=== PATIENT | female | born 1965 | race Caucasian/White ===

== ENCOUNTER 2024-08-06 12:21 | Emergency (ER) | payer MEDICARE, OTHER ==
[~2024-08-06] VITALS: Ht 162.6 cm; Wt 75.5 kg
[2024-08-06] MEDS ORDERED: KETOROLAC TROMETHAMINE 15 MG/ML VIAL IV ONE (12:45)
[2024-08-06 12:51] LABS: BASOPHILS 0.9 % (0-2); EOSINOPHILS 3.5 % (0-6); HEMATOCRIT 35.1 % (35.0-50.0); HEMOGLOBIN 11.9 g/dL (12.0-18.0); LYMPHOCYTES 38.1 % (24-44); MCH 30.2 (27-36); MCHC 33.8 g/dl (30-36); MCV 89.4 fl (81-99); MONOCYTES 7.7 % (0-12); NEUTROPHILS 49.8 % (39-80); PLATELET COUNT 264 K/uL (140-440); RBC 3.92 M/ul (4.3-5.7); RDW 13.5 (10.5-15.0)
[2024-08-06] MEDS ORDERED: LIPITOR80 MG GT (12:52)
[2024-08-06] MEDS ORDERED: DULCOLAX10 MG PR (12:52)
[2024-08-06] MEDS ORDERED: ACETAMINOPHEN500 MG PO (12:52)
[2024-08-06] MEDS ORDERED: BION TEARS OP (12:53)
[2024-08-06] MEDS ORDERED: CERTAVITE SR-A1 EACH PO (12:53)
[2024-08-06] MEDS ORDERED: DULCOLAX5 MG (12:53)
[2024-08-06] MEDS ORDERED: ESCITALOPRAM OX10 MG PO (12:54)
[2024-08-06] MEDS ORDERED: FYCOMPA10 MG PO (12:55)
[2024-08-06] MEDS ORDERED: IBUPROFEN200 M1 PO (12:55)
[2024-08-06] MEDS ORDERED: FOLIC ACID1 MG PO (12:55)
[2024-08-06] MEDS ORDERED: FENOFIBRATE200 MG PO (12:55)
[2024-08-06] MEDS ORDERED: [UNRECOGNIZED DRUG - OTHER] PO (12:56)
[2024-08-06] MEDS ORDERED: [UNRECOGNIZED DRUG - OTHER] PO (12:56)
[2024-08-06] MEDS ORDERED: LEVOTHYROXINE75 MC1 (12:57)
[2024-08-06] MEDS ORDERED: LATANOPROST2.5 ML OPTH (12:57)
[2024-08-06] MEDS ORDERED: LOMOTIL TABLET1 EACH (12:57)
[2024-08-06] MEDS ORDERED: CLARITIN10 M2 PO (12:57)
[2024-08-06] MEDS ORDERED: LORAZEPAM1 MG PO (12:58)
[2024-08-06] MEDS ORDERED: COZAAR25 MG PO (12:58)
[2024-08-06] MEDS ORDERED: MAGNESIUM400 M1 PO (12:58)
[2024-08-06] MEDS ORDERED: PANTOPRAZOLE SO40 M2 PO (12:59)
[2024-08-06] MEDS ORDERED: NYSTATIN15 GM (12:59)
[2024-08-06] MEDS ORDERED: MILK OF MA400 MG/5 M PO (12:59)
[2024-08-06] MEDS ORDERED: TOPIRAMATE PO (13:00)
[2024-08-06] MEDS ORDERED: VALTOCO10 MG/0.1 NS (13:00)
[2024-08-06] MEDS ORDERED: QUETIAPINE FUMA25 MG PO (13:00)
[2024-08-06] MEDS ORDERED: VITAMIN D3100 GM (13:01)
[2024-08-06 13:09] LABS: ALBUMIN 3.5 g/dL (3.4-5.0); ALBUMIN/GLOBULIN RATIO 0.95 (1.1-2.4); ANION GAP 12.6 (7-21); BILIRUBIN, TOTAL 0.2 mg/dL (0.2-1.0); BUN/CREATININE RATIO 20.86 (6.0-28.6); CALCIUM 9.3 mg/dL (8.5-10.1); CREATININE, SERUM 1.15 mg/dL (0.55-1.02); POTASSIUM 3.6 mmol/L (3.5-5.1); PROTEIN, TOTAL 7.2 g/dL (6.4-8.2)
[2024-08-06] MEDS ORDERED: HYDROmorphone HCL 1 MG/ML SYR IV PRN (13:30)
[2024-08-06 15:25] VITALS: BP 159/81
--- NOTE | 2024-08-07 08:14 | EKG ---
[facility] [address] [facility] [place], [place] [address] Signed Normal sinus rhythm Nonspecific ST and T wave abnormality Abnormal ECG No previous ECGs available Confirmed by Jamar Diane DO ([id number]) on 08/07/2024 8:14:30 AM Electronically Signed By: JAMAR DIANE DO 08/07/24 0814 PATIENT NAME: RERE JOVEL Electrocardiogram DATE OF : 65 PHYSICIAN: JAMAR DIANE DO REPORT #: [id number] REPORT IS CONFIDENTIAL AND NOT TO BE RELEASED WITHOUT AUTHORIZATION
== END 2024-08-06 15:30 | disposition home or self-care (01) ==
LOC: ED 12:21
PROVIDERS: Emergency Medicine
DX: R07.89 Other chest pain (principal); G47.30 Sleep apnea, unspecified; Z88.0 Allergy status to penicillin; Z88.1 Allergy status to other antibiotic agents; Z91.018 Allergy to other foods; Z79.2 Long term (current) use of antibiotics; Z79.899 Other long term (current) drug therapy; Z79.890 Hormone replacement therapy
CPT/HCPCS: 36415; 71045; 71260; 80053; 84484; 85025; 85379; 93005; 93010; 99285-25; J1171; J1885

== ENCOUNTER 2025-02-01 23:06 | Inpatient (IN) | payer MEDICARE, OTHER ==
[~2025-02-01] VITALS: Ht 162.6 cm; Wt 75.7 kg
[~2025-02-01 23:06] MED LIST: BION TEARS OU; CERTAVITE SR-A1 EACH PO; CLARITIN10 MG PO; COZAAR25 MG PO; DULCOLAX10 MG PR; DULCOLAX5 MG PO; ESCITALOPRAM OX10 MG PO; FENOFIBRATE200 MG PO; FOLIC ACID1 MG PO; FYCOMPA10 MG PO; IBUPROFEN200 M1 PO; LATANOPROST2.5 ML OU; LIPITOR80 MG PO; LOMOTIL TABLET1 EACH PO; LORAZEPAM1 MG PO; MAGNESIUM400 M1 PO; MILK OF MA400 MG/5 M PO; NYSTATIN15 GM; PAIN RELIEF650 MG PO; PROTONIX40 MG PO; QUETIAPINE FUMA25 MG PO; SYNTHROID75 MCG PO; TOPAMAX200 MG PO; VALTOCO10 MG/0.1 NS; VITAMIN D350 MCG PO; [UNRECOGNIZED DRUG - OTHER] PO; [UNRECOGNIZED DRUG - OTHER] PO
[2025-02-01 23:42] LABS: BASOPHILS 0.7 % (0.1-1.2); EOSINOPHILS 1.4 % (0.7-5.8); LYMPHOCYTES 27.7 % (19.3-51.7); MCH 30.2 PG (25.6-32.2); MCHC 32.9 g/dL (32.2-35.5); MCV 91.9 fL (79.4-94.8); MONOCYTES 7.3 % (4.7-12.5); NEUTROPHILS 62.5 % (34.0-71.1); RBC 4.20 M/uL (3.93-5.22)
[2025-02-02] VITALS (8 sets, daily range): BP systolic 128–146; BP diastolic 60–85
[2025-02-02 00:13] LABS: ALT (SGPT) 34.0 U/L (14-59); AST (SGOT) 28.0 U/L (15-37); GLOMERULAR FILTRATION RATE,EST 55.0 mL/min (>60); PROTEIN, TOTAL 7.6 g/dL (6.4-8.2); UREA NITROGEN 24.0 mg/dL (7-18)
[2025-02-02] MEDS ORDERED: LACTATED RINGER'S 1,000 ML IV SCH ×2 (00:30→04:00)
[2025-02-02] MEDS ORDERED: HYDROmorphone HCL 1 MG/ML SYR IV PRN ×2 (00:30→04:00)
[2025-02-02] MEDS ORDERED: OXYCODONE/ACETAMINOPHEN 1 TAB HOME.PACK PO ONE ×2 (00:45)
[2025-02-02] MEDS ORDERED: OXYCODONE/APAP 5/325 TAB PO ONE (00:45)
[2025-02-02] MEDS ORDERED: PERCOCET 5-3251 EACH PO (00:52)
[2025-02-02 01:18] LABS: BLOOD/HGB, URINE NEGATIVE (Negative); KETONE, URINE NEGATIVE (Negative); LEUK ESTERASE, URINE NEGATIVE (negative); NITRITE, URINE NEGATIVE (negative)
[2025-02-02] MEDS ORDERED: ACETAMINOPHEN 325 MG TAB PO PRN ×2 (04:00→12:15)
[2025-02-02] MEDS ORDERED: LACOSAMIDE100 MG PO (04:53)
[2025-02-02] MEDS ORDERED: FYCOMPA10 MG PO (04:57)
--- NOTE | 2025-02-02 06:55 | NUR ---
THIS RN TO ER TO GET PT FOR TRSF TO MED SURG. PT ALONE IN ROOM - SLEEPING WITH CALL LIGHT IN REACH - OPENS EYES TO STIMULI BUT DOES NOT TALK OR ANSWER ANY QUESTIONS, EYES OPEN WIDE. PT DOES NOT FOLLOW ANY COMMANDS EXCEPT WHEN I ASK HER TO LIFT UP HER HANDS. DOES NOT RESPOND WHEN I ASK ABOUT PAIN OR WHAT HAPPENED, OR HER NAME. THIS RN AND ER NURSE ROSSI HERRMANN PT FOR SKIN CHECK WNL. ATTENDS CLEAN AND DRY. PT ONLY HAS [employer] ON AND WITH HER - AND HER ISP BOOK FROM [employer]. PT HAS [employer] POLST FORM FOR FULL CODE IN BINDER AND CELL OPERATION SUPERVISOR REPORTS PT IS HER OWN GAURDIAN AND STAFF REPORTED FROM [employer] THAT SHE SIGNS FOR HERSELF. PT TRSFERED TO ROOM 115 AND WAS HOVER MAT SLIDE TO BED - DID NOT RESPOND TO QUESTIONS, LEFT LEG IN SPLINT AND ELEVATED ON PILLOW, BED ALARM ON, LOW POSITION, PT VITALS TAKEN AND BED WEIGHT AND THEN FALLS ASLEEP. DOOR AND CURTAIN OPEN 0730 REPORT GIVEN TO MEKHI.
--- NOTE | 2025-02-02 07:00 | NUR ---
ON WAY TO PT ROOM PASSED DC ROVERTO ALVA, LET THEM KNOW PT FROM [facility] WITH NO STAFF AT PRESENT AND THIS RN TO ADMIT TO ROOM 115, PT HAS POLST FROM HOME - FULL CODE, [place] FORM HAS A NOTE ON IT ABOUT LEGALITY - RN CONCERNED PT IS ALONE AND NOT ALERT AND ORIENTED TO SELF AT THIS TIME, PT NPO FOR POTENTIAL ASSESSMENT FOR SURGERY FOR LEFT TIB/FIB FX. PT SLEEPY. THEY HAVE NOTED SITUATION.
--- NOTE | 2025-02-02 07:36 | NUR ---
THIS RN RECEIVED REPORT FROM JAME RN Rosi TORRES. PATIENT RESTING IN BED, OPENES EYES WHEN TALKING TO HER, SHAKES HER HEAD TO SOME QUESTIONS BUT NOT VERBALLY RESPONDING. CALL LIGHT PROVIDED TO PATIENT, BED ALARM IN PLACE. (L) LEG CAST WITH CARINA BANDAGE IN PLACE, TOES WARM. PT DOES NOT RESPOND WHEN ASKING IF IN PAIN. CURRENTLY ALL PT CARE NEEDS MET, TEMP IN ROOM TURNED UP SLIGHTLY IT IS CHILLY. WILL ALLOW PATIENT TO REST AT THIS TIME. GREEN BINDER FROM [facility] PRESENT IN ROOM ON BEDSIDE TABLE.
--- NOTE | 2025-02-02 08:22 | NUR ---
PT RESTING IN BED, DOES TO RESPOND VERBALLY, ASKED IF PATIENT IS IN PAIN THIS MORNING AND SHAKES HER HEAD YES, WILL NOT GIVE ME ANY NUMERICAL NUMBER, FACIAL GRIMACES, DOES NOT APPEAR ANXIOUS OR AGITATED. PRN DILAUDID 0.4MG GIVEN - SEE JUN. IV FLUIDS STARTED - SEE JUN. ASSESSMENT BENIGN, EXCEPT THE CAST TO (L) LEG, TOES WARM, PATIENT JERKED WHEN TOUCHED TOES, FACIAL GIMACHES AND LIFTED HEAD BACK, APPEARS IN SIGNIFICANT PAIN. ATTENDS IN PLACE. BED ALARM IN PLACE, CALL LIGHT WITHIN PATIENT REACH.
[2025-02-02 08:26] LABS: GLOMERULAR FILTRATION RATE,EST 61.0 mL/min (>60); UREA NITROGEN 25.0 mg/dL (7-18)
--- NOTE | 2025-02-02 09:29 | NUR ---
THIS RN AND SHIRT HEMMER ELBA IN TO APPLY PUREWICK AND REPOSITION PATIENT. PERICARE COMPLETED PRIOR TO PUREWICK IN PLACE. PT SHAKES HER HEAD YES WHEN ASKED IF HER PAIN IS BETTER. PT ABLE TO BEND RIGHT LEG TO HELP WITH PERICARE. ABLE TO WIGGLES LEFT TOES WHEN ASKED TO. BED ALARM IN PLACE. ALL PT CARE NEEDS MET AT THIS TIME.
--- NOTE | 2025-02-02 09:49 | NUR ---
PT RESTING IN BED WITH EYES CLOSED, DOES NOT OPEN WHEN THIS RN ENTERS ROOM. PT ALLOWED TO REST, CALL LIGHT ON THE BED WITHIN REACH. BED ALARM IN PLACE.
--- NOTE | 2025-02-02 09:55 | NUR ---
CT ARRIVED TO FLOOR TO GET PATIENT, PT ABLE TO TURN AND ASSIST THIS RN IN BED, HOVER MAT APPLIED TO BED TO ASSIST THEM WITH MOVING PATIENT OVER IN CT. PT UNDERSTANDS AND STATES TO THIS RN, "I KNOW", WHEN EXPLAINGIN ABOUT THE CT IMAGING PROCEDURE.
--- NOTE | 2025-02-02 10:21 | NUR ---
PT BACK ON FLOOR FROM CT. IV FLUIDS RESTARTED. BED ALARM IN PLACE, PT DENIES ANY THING AT THIS TIME, CALL LIGHT WITHIN REACH.
--- NOTE | 2025-02-02 11:58 | NUR ---
LUIS MIGUEL LOCK (NICOLAS @ [facility]) CALLED FOR UPDATE. INFORMED PT TO GO TO SURGERY SUNDAY. SHE IS OCNCERNED ABOUT HER NEEDS POST-OP AND THEIR ABILITY TO TAKE CARE OF HER TO THE LEVEL SHE WILL NEED. INFORMED I WILL HAVE CASE MGMT UPDATE HER AND DISCUSS SAFE DISCHARGE PLAN WITH HER. INFORMATION GIVEN TO YOVANI AND SHE WILL TOUCH BACK WITH LUIS MIGUEL.
[2025-02-02] MEDS ORDERED: FENOFIBRATE,MICRONIZED 145 MG TAB PO SCH (12:20)
[2025-02-02] MEDS ORDERED: LORATADINE 10 MG TAB PO SCH (12:25)
[2025-02-02] MEDS ORDERED: LORazepam 1 MG TAB PO PRN (12:45)
[2025-02-02] MEDS ORDERED: ESCITALOPRAM OXALATE 10 MG TAB PO SCH ×2 (12:49→21:00)
[2025-02-02] MEDS ORDERED: LACOSAMIDE200 MG PO (12:56)
[2025-02-02] MEDS ORDERED: LORAZEPAM1 MG PO (13:02)
[2025-02-02] MEDS ORDERED: TOPAMAX50 MG PO (13:06)
--- NOTE | 2025-02-02 13:15 | NUR ---
PT PUT QUENCHER OPERATOR LIGHT, THIS RN TO ROOM PT GRIMACING AND APPEARS IN PAIN, UNABLE TO GIVE ME A NUMERICAL RATING FOR PAIN. VERY TENSE. PRN MEDS GIVEN - SEE MAR. PT ABLE TO TOLERATE PILLS WITHOUT ANY ISSUES, GIVEN 1 PILL AT A TIME. DIETARY CALLED TO GET A LUNCH TRAY DELIVERED MD JUST INPUT MEDS. CALL LIGHT WTIHIN REACH, BED ALARM IN PLACE. PUREWICK REMAINS IN PLACE.
[2025-02-02] MEDS ORDERED: ADVIL200 MG PO (13:25)
--- NOTE | 2025-02-02 13:49 | NUR ---
UR CLINICAL REVIEW: 2 MN FOR VERSALUS-PER OUTSIDE PRODUCTION INSPECTOR MEETS INPT FOR ANKLE FX WITH NEED FOR IV PAIN CONTOL AND SURGICAL PROCEDURE MEDICARE INPT 02/02/25 @ 1233 ORDER MATCHES REG NO AUTH REQUIRED PER MEDICARE GUIDELINES DISCHARGE PENDING FURTHER NEEDS FOLLOWING SURGICAL PROCEDURE
--- NOTE | 2025-02-02 13:49 | NUR ---
SPOKE WITH CAREGIVER AT [facility]. PATIENT PERSONAL HEALTH INFORMATION REVIEWED. PATIENT AMBULATORY AT FACILITY. HAS A WHEELCHAIR FOR LONG OUTINGS. DOES NOT USE OXYGEN OR CPAP. PATIENT LIVED ALONE PRIOR TO MOVING INTO [facility] 2 YEARS AGO. SPOKE WITH CAREGIVER LUIS MIGUEL. LET HER KNOW THAT SHE WILL HAVE SURGERY ON 02/04. SHE SAID SHE WOULD COME TO THE HOSPITAL TO BE WITH HER WHILE FILLING OUT HER CONSENT BUT SHE IS HER OWN GUARDIAN AND CAN SIGN FOR HERSELF. SHE HAD A PCP IN [place] MARIE CAUSEY BUT DUE TO [place] NOT TAKING [place] ANYMORE SHE IS GETTING ESTABLISHED ON 01/10 WITH ELSA LOPES AT [facility].
--- NOTE | 2025-02-02 15:00 | NUR ---
CT ARRIVES TO FLOOR TO TAKE PATIENT VIA BED, IV SALINE LOCKED. PUREWICK REMOVED AT THIS TIME. HOVER MAT UNDER PATIENT.
--- NOTE | 2025-02-02 15:20 | NUR ---
PT ARRIVED BACK TO FLOOR FROM CT. HERB RECONNECTED - PT STATES SHE NEEDS TO PEE, BLADDER SCAN PRIOR TO CT WAS 355ML. IV FLUIDS RESTARTED. MD AWARE OF NO VOID OF YET, BUT WITH LOW RESIDUAL IN BLADDER WILL CONTINUE TO MONITOR. PT DID SHAKE HER HEAD WHEN IMENTIONED NOT NORMAL TO GO PEE IN THE BED, BUT EDUCATED SHE IS ABLE TO AT THIS TIME. WILL CONTINUE TO MONITOR. CALL LIGHT WITHIN REACH, BED PLUGGED BACK IN. BED ALARM ON.
--- NOTE | 2025-02-02 15:51 | NUR ---
PHARMACY -SURINDER WANTED ME TO UPDATE MD ON PATIENT HOME MEDICATION TOPIRAMATE, NORMALLY TAKES 250MG BID; CURRENT ORDER FOR 200MG DAILY; MD INFORMED VIA TELEPHONE BY BAIT MANDICK TORRES OF DOSE DIFFERENCE AND HE WILL REVIEW.
--- NOTE | 2025-02-02 17:11 | NUR ---
PT CMS INTACT, PER DR. HUGHES CAST POTENTIAL TO RUB ON BOTTOM OF FOOT. GAUZE APPLIED BETWEEN CAST AND FOOT A BARRIER. CMS INTACT, ABLE TO WIGGLE TOES, WARM AND CAP REFILL WNL. PT REMAINS NWB AT THIS TIME. ALL PT CARE NEEDS MET.
--- NOTE | 2025-02-02 17:32 | NUR ---
PT SITTING UP IN BED, FEEDING HERSELF DINNER. PT SHAKES HER HEAD THAT SHE HAS NOT URINATED YET, TOLD HER SHE REALLY NEEDS TO PEE. PT SMILED AT THIS RN. LIGHTS TURNED UP IN, PT GIVES THIS RN THUMBS UP THAT THE LIGHTING IS GOOD. MD NOTIFIED AGAIN OF THE EPILEPSY MEDS, THIS RN CALL TO [facility] TO SEE IF THEY CAN BRING IN THE FYCOMPA & LACOSAMIDE - VM WAS LEFT AT FACILITY TO SEE IF THEY CAN BRING THOSE IN AND WE CAN ORDER/VERIFY WITH PHARMACY. WILL AWAIT RETURN
--- NOTE | 2025-02-02 17:41 | NUR ---
PATIENT SITTING UP IN BED AT THIS TIME. PATIENT DID WELL EATING DINNER. VITALS AND I&O'S DONE AND CHARTED. PATIENT NODDED HEAD YES WHEN ASKED IF SHE HAD ANY PAIN, RN NOTIFIED. NO VOID, RN NOTIFIED. CALL LIGHT IN REACH. BED ALARM ON. FALL MATS IN PLACE.
--- NOTE | 2025-02-02 18:05 | NUR ---
THIS TOOL DESIGN CHECKER IN TO DO VITALS AND I&O'S, DONE AND CHARTED. PATIENT UP TO BSC, 2 PA PIVOT TRANSFER. PATIENT TRANSFERED VERY WELL. NEW DEPENDS, AND CHUCKS ON. CALL LIGHT IN REACH. NO FURTHER NEEDS AT THIS TIME.
--- NOTE | 2025-02-02 19:32 | NUR ---
REPORT RECEIVED FROM DAY SHIFT RN. PT LYING IN BED ALERT. DENIES NEEDS. WHITE BOARD UPDATED. CALL LIGHT IN REACH. BED ALARM FOR SAFETY.
[2025-02-02] MEDS ORDERED: MELATONIN 3 MG TAB PO PRN (21:00)
[2025-02-02] MEDS ORDERED: LACOSAMIDE 100 MG TAB PO SCH (21:00)
[2025-02-02] MEDS ORDERED: QUETIAPINE FUMARATE 25 MG TAB PO SCH (21:00)
[2025-02-02] MEDS ORDERED: ATORVASTATIN 40 MG TAB PO SCH (21:00)
[2025-02-02] MEDS ORDERED: LACOSAMIDE 200 MG TABLET PO SCH (21:00)
[2025-02-02] MEDS ORDERED: TOPIRAMATE 25 MG TAB PO SCH ×2 (21:00)
--- NOTE | 2025-02-02 22:27 | NUR ---
PT RESTING IN BED WITH EYES CLOSED. AWAKENS EASILY. ALERT AND ORIENTED TO SELF AND EVENT. EVENING ASSESSMENT COMPLETE. SCHEDULED MEDS ADMIN PER EMAR. PT REPORTS LLE PAIN 12/17. PRN FOR PAIN ADMIN PER EMAR. LLE WITH CARINA/CAST INTACT. CMS INTACT. PT UP TO BSC WITH TWO PERSON PIVOT TRANSFER AND FWW. STAFF ASSIST WITH LEATHA CARE. PT NWB ON LLE. BACK TO BED, CHAN WELL. LLE ELEVATED ON PILLOW. ICE PACK APPLIED. NEW IV PLACED IN LEFT FOREARM X 1 ATTEMPT. RIGHT WRIST IV DC'D DUE TO INFILTRATION. TIP INTACT. SEIZURE PADS AND FALL MATS IN PLACE. PT DENIES FURTHER NEEDS. CALL LIGHT IN REACH.
[2025-02-03] VITALS (10 sets, daily range): BP systolic 113–132; BP diastolic 55–78
--- NOTE | 2025-02-03 00:06 | NUR ---
CALL LIGHT ANSWERED. PT REPORTS PAIN IN LEFT FOREARM FROM IV. IV FLUSHED WITH 10 ML NS. BRISK BLOOD RETURN NOTED. IV SITE WNL. ARM REPOSITIONED ON PILLOW. OFFERED WARM COMPRESS, PT DECLINES. NO FURTHER NEEDS. CALL LIGHT IN REACH. BED ALARM FOR SAFETY.
--- NOTE | 2025-02-03 02:16 | NUR ---
IV PUMP ALARMING. ISSUE RESOLVED. PT UP TO BSC WITH 2PA AND FWW TO VOID. NWB LLE. STAFF ASSIST WITH LEATHA CARE. BACK TO BED, CHAN WELL. LLE ELEVATED ON PILLOW. FRESH ICE PACK PROVIDED. PT REPORTS LLE PAIN 12/17. PRN FOR PAIN ADMIN PER EMAR. NO FURTHER NEEDS. BED ALARM IN PLAC. CALL LIGHT IN REACH.
--- NOTE | 2025-02-03 05:16 | NUR ---
PT RESTING WITH EYES CLOSED. AWAKENS EAILY. VS AND I&O OBTAINED. PT REPORTS LLE PAIN 10/16. PRN FOR PAIN ADMIN PER EMAR. SCHEDULED MEDS ADMIN. NO FURTHER NEEDS. BED ALARM IN PLACE. CALL LIGHT IN REACH.
[2025-02-03 05:31] LABS: BASOPHILS 0.7 % (0.1-1.2); EOSINOPHILS 2.8 % (0.7-5.8); LYMPHOCYTES 36.8 % (19.3-51.7); MCH 30.6 PG (25.6-32.2); MCHC 32.3 g/dL (32.2-35.5); MCV 94.7 fL (79.4-94.8); MONOCYTES 12.4 % (4.7-12.5); NEUTROPHILS 46.8 % (34.0-71.1); RBC 3.37 M/uL (3.93-5.22)
[2025-02-03 05:42] LABS: GLOMERULAR FILTRATION RATE,EST 59.0 mL/min (>60); UREA NITROGEN 23.0 mg/dL (7-18)
[2025-02-03] MEDS ORDERED: CLINDAMYCIN PHOSPHATE/D5W 900 MG/50 ML PIGGYBACK IV ONE (07:00)
[2025-02-03] MEDS ORDERED: TRANEXAMIC ACID IN NACL,ISO-OS 1,000 MG/100 ML PIGGYBACK IV SCH (07:00)
[2025-02-03] MEDS ORDERED: LEVOTHYROXINE SODIUM 75 MCG TAB PO SCH (07:00)
--- NOTE | 2025-02-03 07:17 | NUR ---
MED REC COMPLETE
--- NOTE | 2025-02-03 07:36 | NUR ---
Patient resting in bed, eyes closed, respirations non labored. Patient has no notable distress. SP02 98% per cpox, no distress.
[2025-02-03] MEDS ORDERED: LOSARTAN POTASSIUM 25 MG TAB PO SCH (09:00)
[2025-02-03] MEDS ORDERED: TOPIRAMATE 25 MG TAB PO SCH ×2 (09:00)
[2025-02-03] MEDS ORDERED: PANTOPRAZOLE SODIUM 40 MG TABEC PO SCH (09:00)
[2025-02-03] MEDS ORDERED: TOPIRAMATE 200 MG TABLET PO SCH (09:00)
--- NOTE | 2025-02-03 09:37 | NUR ---
ADMIN 0.5MG IV DILAUDID FOR REPORTED 6/10 LLE PAIN. PATIENT UP IN CHAIR, 2PA WITH WALKER/GAIT BELT, PT ABLE TO MAINTAIN NWB TO LLE WITH INSTRUCTION. CHAIR ALARM INTACT, PT INSTRUCTED TO CALL STAFF PRIOR TO GETTING UP, SHE REPORTS HER UNDERSTANDING.
--- NOTE | 2025-02-03 09:57 | NUR ---
PATIENT IN CHAIR AT THIS TIME TALKING WITH CASE MANAGMENT. MARIBEL SEGAL. I&O'S CHARTED. CALL LIGHT IN REACH. NO FURTHER NEEDS AT THIS TIME. FALL MATS IN PLACE.
--- NOTE | 2025-02-03 10:14 | NUR ---
Spoke with Kelin. UPdated, Dr. Rodriguez feels she will need to go to a skilled facility on discharge. Pt. stating she will stay in town at [facility]. I attempted to explain she will need a higher level of care for a short time. I asked if she would like me to call Danielle at [facility] to discuss with her. She agrees. She denies other needs. Wants to know where the [facility] is. I showered her out her window of the general area. She still uncertain and wants to return to [facility]. 1040 Called and spoke with Danielle. She will come and speak with Kelin. Per Danielle, Kelin cannot return to them until she has had therapy. She is over their level of care. I updated her to my conversation with Dr. Rodriguez last night and he is recommending SNF.
[2025-02-03] MEDS ORDERED: PHARMACY RENAL DOSE ADJUSTMENT 1 DOSE MISC PO SCH (12:00)
--- NOTE | 2025-02-03 14:31 | NUR ---
PT WAS IN CHAIR AND REPORTED NEEDING TO USE THE COMMODE. SHE TRIED TO GET TO THE COMMODE BUT WAS HAVING TROUBLE HOPPING AND USING THE WALKER THEN ASKED TO GO TO THE BED. SHE SEEMED CONFUSED AND UPSET THEN ONCE IN BED WAS NOT UPSET OR CONFUSED - HER EXPRESSIONS DID NOT MATCH HER VERBAL COMMUNICATION. PT IN BED WATCHING TV. I CHANGED HER BRIEF AND PLACED A PW - THEN GOT HER RN BECAUSE THE IV KEPT GOING OFF, PT IS MOVING HER ARM A LOT - AND DIRECTINS ARE NOT MAKING SENSE TO THE PT.
--- NOTE | 2025-02-03 15:20 | NUR ---
Patient awake in bed watching tv, no acute distress. Patient reports 5/10 LLE pain. Patient denies further needs. CMS remains intact to LLE.
--- NOTE | 2025-02-03 18:15 | NUR ---
Admin dilaudid 0.5mg iv at this time for 7/10 LLE pain. Dinner to patient, she is eating independently without difficulty. No further needs, personal supplies and call light within reach.
--- NOTE | 2025-02-03 19:04 | NUR ---
TOOK OUT TRASH AND CLEANED UP THE ROOM. GOT PT FRESH ICE PACK FOR LEG AND ICE WATER NEXT TO HER BED. CALL LIGHT WITHIN REACH.
--- NOTE | 2025-02-03 19:26 | NUR ---
REPORT RECEIVED FROM DAY SHIFT RN. PT LYING IN BED ALERT. DENIES NEEDS. WHITE BOARD UPDATED. CALL LIGHT IN REACH. BED ALARM FOR SAFETY.
--- NOTE | 2025-02-03 21:05 | NUR ---
PT USED BEDSIDE COMMODE WITH ASSISTANCE OF RESEARCH PROGRAM INTERN. PT HAS NO NEEDS AT THIS TIME. CALL LIGHT WITHIN REACH.
--- NOTE | 2025-02-03 22:14 | NUR ---
EVENING ASSESSMENT COMPLETE. SCHEDULED MEDS ADMIN PER EMAR. PT REPORTS LLE PAIN 5/10. PRN FOR PAIN ADMIN PER EMAR. LLE ELVATED WITH ICE PACK. CMS INTACT. CAST IN PLACE. SEIZURE PADS AND FALL MATS IN PLACE. PT DENIES FURTHER NEEDS. CALL LIGHT IN REACH. BED ALARM FOR SAFETY.
--- NOTE | 2025-02-03 22:43 | NUR ---
CALL LIGHT ANSWERED. PT REPORTS LLE PAIN 10/16. PRN FOR PAIN ADMIN PER EMAR. EXTRA BLANKET PROVIDED. NO FURTHER NEEDS.
[2025-02-04] VITALS (9 sets, daily range): BP systolic 101–158; BP diastolic 52–89
--- NOTE | 2025-02-04 00:23 | NUR ---
PT RESTING IN BED WITH EYES CLOSED. RESPIRATIONS EVEN. CALL LIGHT IN REACH.
--- NOTE | 2025-02-04 02:55 | NUR ---
PT RESTING IN BED WITH EYES CLOSED. RESPIRATIONS EVEN. CALL LIGHT IN REACH.
--- NOTE | 2025-02-04 04:34 | NUR ---
PT UP TO BEDSIDE COMMODE. PT USED WALKER. CALL LIGHT WITHIN REACH.
--- NOTE | 2025-02-04 04:46 | NUR ---
PT REPORTS LLE PAIN 10/10. PRN FOR PAIN ADMIN PER EMAR. ICE PACK PROVIDED FOR COMFORT. ASSESSMENT UNCHANGED. NO FURTHER NEEDS. CALL LIGHT IN REACH.
[2025-02-04 05:58] LABS: BASOPHILS 0.7 % (0.1-1.2); EOSINOPHILS 3.0 % (0.7-5.8); LYMPHOCYTES 28.3 % (19.3-51.7); MCH 30.6 PG (25.6-32.2); MCHC 32.9 g/dL (32.2-35.5); MCV 93.1 fL (79.4-94.8); MONOCYTES 11.3 % (4.7-12.5); NEUTROPHILS 56.6 % (34.0-71.1); RBC 3.46 M/uL (3.93-5.22)
--- NOTE | 2025-02-04 06:12 | NUR ---
LAB IN FOR MORNING DRAW. PT AWAKE IN BED. REPORTS LLE PAIN TOLERABLE. DISCUSSED NPO STATUS AND HOLDING MORNING MEDS. PT VERBALIZES UNDERSTANDING. IVF INFUSING PER ORDER. PT DENIES FURTHER NEEDS.
[2025-02-04 06:14] LABS: GLOMERULAR FILTRATION RATE,EST 72.0 mL/min (>60); UREA NITROGEN 19.0 mg/dL (7-18)
[2025-02-04] MEDS ORDERED: TRANEXAMIC ACID IN NACL,ISO-OS 1,000 MG/100 ML PIGGYBACK IV SCH (07:00)
[2025-02-04] MEDS ORDERED: CLINDAMYCIN PHOSPHATE/D5W 900 MG/50 ML PIGGYBACK IV SCH (07:00)
--- NOTE | 2025-02-04 07:37 | EKG ---
[facility] [address] [place], [place] [address] Signed Normal sinus rhythm Nonspecific ST and T wave abnormality Abnormal ECG When compared with ECG of 06-AUG-2024 12:22, Nonspecific T wave abnormality no longer evident in Inferior leads Confirmed by Teddy Diane DO ([id number]) on 02/04/2025 7:36:53 AM Electronically Signed By: TEDDY DIANE DO 02/04/25 0737 PATIENT NAME: RERE JOVEL CEDRIC Electrocardiogram DATE OF : 65 PHYSICIAN: TEDDY DIANE DO REPORT #: [id number] REPORT IS CONFIDENTIAL AND NOT TO BE RELEASED WITHOUT AUTHORIZATION
--- NOTE | 2025-02-04 07:44 | NUR ---
CALL DOWN TO KAY JERNIGAN, VERIFIED PATIENT NOT GOING TO SURGERY TILL THIS AFTERNOON, WOULD THEY WANT HER TO HAVE MORNING MEDS. PER RERE GIVEN PILLS WITH SIP OF WATER THIS MORNING. PRIMARY RN UPDATED.
--- NOTE | 2025-02-04 08:35 | NUR ---
Patient awake, alert and oriented x3, no acute distress. Patient voided using commode, 2pa with walker/nwb lle back to chair. Morning medications admin with small sip of water per surgery approval. Patient to go to surgery later today. Patient verbalized her understanding of plan of care. Chair alarm intact, call light within reach.
--- NOTE | 2025-02-04 09:11 | NUR ---
ALERT AND ORIENTED IN RECLINER. CAREGIVER, MEKHI FROM [facility], IN ROOM WITH PATIENT. PATIENT CURRENTLY IN AGREEANCE TO DC TO SNF AT [facility] WHEN SHE IS MEDICALLY READY. NO FURTHER NEEDS AT THIS TIME. PLANNING FOR SURGERY THIS AFTERNOON.
--- NOTE | 2025-02-04 09:52 | NUR ---
THIS RN RECEIVED CALL FROM RERE IN OR, PT SURGERY TODAY CANCELLED. PT WILL NOT BE THE 1ST CASE ON SUNDAY MORNING. ORDER TO CHANGE DIET BACK TO REGULAR, DIETARY CALLED FOR A BREAKFAST TRAY. PRIMARY RN NOTIFIED AND AGREES.
--- NOTE | 2025-02-04 10:05 | NUR ---
PATIENT COMPLAINS OF 8/10 LEFT ANKLE PAIN, PRN DILAUDID 0.5MG IV GIVEN ( SEE EMAR). PATIENT SITTING UP IN RECLINER WATCHING TV. BREAKFAST TRAY PROVIDED. PATIENT DENIES ANY NEEDS AT THIS TIME. CALL LIGHT IN REACH.
--- NOTE | 2025-02-04 12:04 | NUR ---
PATIENT SITTING UP IN RECLINER EYES CLOSED, BREATHING EVEN AND UNLABORED. CALL LIGHT IN REACH.
--- NOTE | 2025-02-04 12:44 | NUR ---
PATIENT ASSISTED BACK TO BED-3PA WITH WALKER. PATIENT REPORTS 7/10 LLE PAIN, ADMIN DILAUDID 0.5MG IV AT THIS TIME. BED ALARM INTACT.
--- NOTE | 2025-02-04 14:27 | NUR ---
ADMIN DILAUDID 0.5MG IV FOR REPORTS OF 9/10 LLE PAIN.
--- NOTE | 2025-02-04 16:26 | NUR ---
Patient in bed watching tv, no acute distress. Patient reports 7/10 LLE pain. Admin tylenol 650mg po and dilaudid 0.5mg iv at this time. CMS remains intact to LLE.
--- NOTE | 2025-02-04 17:51 | NUR ---
PATIENT HAD URINE INCONTIENCE DUE TO PUREWICK MISPLACEMENT. LEATHA CARE PERFORMED, FRESH BRIEF AND PUREWICK APPLIED, PATIENT TOLERATED WELL. PATIENT REPOSITIONED IN BED PER COMFORT. LEFT LEG ELEVATED AND ICE PACK APLLIED. PATIENT DENIES FURTHER NEEDS AT THIS TIME. CALL LIGHT IN REACH.
--- NOTE | 2025-02-04 19:15 | NUR ---
REPORT RECEIVED FROM PERLA JENNINGS. BOARD UPDATED. pt RESTING IN THE BED. IV ALARMING. IV RESTARTED. pt DENIES ANY OTHER NEEDS AT THIS TIME. IV ASSESSED, WNL. CALL LIGHT WITHIN REACH.
[2025-02-04] MEDS ORDERED: TOPIRAMATE 25 MG TAB ONE (20:26)
--- NOTE | 2025-02-04 20:35 | NUR ---
ASSESSMENT AND VITAL SIGNS DONE. pt IV ASSESSED, IV LEAKING. IV DC'D. PARKER RN CALLED TO RM TO SEE IF SHE COULD START IV. PARKER JENNINGS STARTED US IV IN RIGHT FOREARM. IVF INFUSING PER ORDER. PURE WICK IN PLACE. ICE PACK REFRESHED. SCHEDULED MEDS ADMINISTERED. pt DENIES ANY OTHER NEEDS AT THIS TIME. CALL LIGHT WITHIN REACH. CMS INTACT IN RLE. DRESSING INTACT.
--- NOTE | 2025-02-04 20:48 | NUR ---
20G, 1.75" USIV PLACED @ 0.75CM DEPTH IN RFA. PT TOLERATED WELL. GOOD BLOOD RETURN, FLUSHED WELL. IV FLUIDS STARTED IN LINE. PRIMARY RN IN ROOM TO COMPLETE CARES.
--- NOTE | 2025-02-04 22:05 | NUR ---
pt CALLED AND C/O 11/16 PAIN. PRN PAIN MEDS ADMINISTERED. pt DENIES ANY OTHER NEEDS AT THIS TIME. CALL LIGHT WITHIN REACH. pt ALSO STATED HER PUREWICK WAS NOT WORKING. THIS RN HELPED pt BY ADJUSTING THE PUREWICK AND LETTING HER KNOW THAT IT IN THE RIGHT SPOT FOR HER TO GO.
[2025-02-05] VITALS (8 sets, daily range): BP systolic 142–157; BP diastolic 61–95
--- NOTE | 2025-02-05 00:25 | NUR ---
pt CALLED AND STATED SHE WAS DONE WITH HER PEE. pt HAD 750mL IN THE CANISTER. TUBE BACKER IN RM TO EMPTY CANISTER. pt DENIES ANY OTHER NEEDS AT THIS TIME. CALL LIGHT WITHIN REACH.
--- NOTE | 2025-02-05 01:32 | NUR ---
prn pain medication given for pain in lower extremity, see emar. no additional needs or concerns verbalzied. call light in reach.
--- NOTE | 2025-02-05 03:22 | NUR ---
pt RESTING IN THE BED WITH EYES CLOSED. pt DENIES ANY NEEDS AT THIS TIME. CALL LIGHT WITHIN REACH.
--- NOTE | 2025-02-05 04:17 | NUR ---
pt RESTING IN THE BED WITH EYES CLOSED. RR EVEN AND UNLABORED. CALL LIGHT WITHIN REACH.
--- NOTE | 2025-02-05 05:18 | NUR ---
PT CALLED FOR HELP AND THOUGHT THEY WERE INCONT. NEW PUREWICK IN PLACE, BRIEF DRY. VITALS DONE. CALL LIGHT IN REACH, NO NEEDS AT THIS TIME.
--- NOTE | 2025-02-05 06:07 | NUR ---
pt CALLED AND C/O 12/17 PAIN. PRN PAIN MEDS ADMINISTERED. SCHEDULED MEDS ADMINISTERED. pt DENIES ANY OTHER NEEDS AT THIS TIME. ICE PACK PROVIDED. CALL LIGHT WITHIN REACH.
--- NOTE | 2025-02-05 07:35 | NUR ---
RECEIVED REPORT FROM DICK MACE. PT LAYING IN BED W/ EYES CLOSED, UNLABORED BREATHING. NO NEEDS AT THIS TIME, CALL LIGHT IN REACH.
--- NOTE | 2025-02-05 08:55 | NUR ---
PATIENT IN BED AT THIS TIME. THIS POWER PLANT ELECTRICIAN AND POWER PLANT ELECTRICIANMor HARO ASSISTED PATIENT TO BEDSIDE COMMODE AND THEN BACK TO BED. BOTH CNAS PLACED A NEW PUREWICK. CALL LIGHT WITHIN REACH, NO FURTHER NEEDS AT THIS TIME.
--- NOTE | 2025-02-05 09:10 | NUR ---
PT REPORTS FEELING LIKE SHE MIGHT BE HAVING A SEIZURE, MD NOTIFIED AND AT BEDSIDE. NO NEW ORDERS.
--- NOTE | 2025-02-05 10:34 | NUR ---
INTO SEE PATIENT. WAITING FOR SURGERY TOMORROW 02/06. STILL PENDING SNF ACCEPTANCE. UPDATES WERE SENT TO [facility] THIS AM.
--- NOTE | 2025-02-05 11:00 | NUR ---
PTS IV BEEPING, ASSESSED, NEW BAG OF FLUID HUNG. NO OTHER NEEDS AT THIS TIME, CALL LIGHT IN REACH.
--- NOTE | 2025-02-05 12:23 | NUR ---
REPOSITIONED PATIENT IN BED, LUNCH TRAY SET UP. PT SITTING UP IN BED EATING LUNCH, NO OTHER NEEDS AT THIS TIME, CALL LIGHT IN REACH.
--- NOTE | 2025-02-05 15:38 | NUR ---
PT SITTING UP IN BED WATCHING TV, NO NEEDS AT THIS TIME, CALL LIGHT IN REACH.
--- NOTE | 2025-02-05 19:52 | NUR ---
REPORT RECEIVED FROM CAR JENNINGS. pt SITTING IN THE CHAIR. BOARD UPDATED. pt DENIES ANY NEEDS AT THIS TIME. CALL LIGHT WITHIN REACH.
--- NOTE | 2025-02-05 20:45 | NUR ---
ASSESSMENT AND VITAL SIGNS DONE. 2PA TRANSFER TO THE BED. pt NON WEIGHT BEARING ON LLE. SCHEDULED MEDS ADMINISTERED. pt C/O 11/16 PAIN. PRN PAIN MEDS ADMINISTERED. LLE CMS INTACT. ICE PACK PROVIDED. WATER REFRESHED. pt DENIES ANY OTHER NEEDS AT THIS TIME. CALL LIGHT WITHIN REACH.
--- NOTE | 2025-02-05 23:40 | NUR ---
pt RESTING IN THE BED WITH EYES CLOSED. RR EVEN AND UNLABORED. CALL LIGHT WITHIN REACH.
[2025-02-06] VITALS (13 sets, daily range): BP systolic 112–144; BP diastolic 56–79
--- NOTE | 2025-02-06 01:55 | NUR ---
pt RESTING IN THE BED. FLUIDS TAKEN AWAY. NPO AT THIS TIME FOR PROCEDURE IN THE MORNING. pt DENIES ANY OTHER NEEDS AT THIS TIME. CALL LIGHT WITHIN REACH.
--- NOTE | 2025-02-06 03:29 | NUR ---
pt C/O 12/17 PAIN. PRN PAIN MEDS ADMINISTERED. pt TAKEN OFF THE BED NÚÑEZ. pt UNABLE TO HAVE BM. pt PURE WICK CHANGED AND BRIEF CHANGED. pt DENIES ANY OTHER NEEDS AT THIS TIME. CALL LIGHT WITHIN REACH.
[2025-02-06] MEDS ORDERED: DEXAMETHASONE SOD PHOS 10 MG/ML VIAL ONE (06:28)
[2025-02-06] MEDS ORDERED: Ropivacaine HCl 20 MG/10 ML AMP ONE (06:28)
[2025-02-06] MEDS ORDERED: Ropivacaine HCl 0.5% 30 ML VIAL ONE (06:29)
[2025-02-06] MEDS ORDERED: LIDOCAINE HCL 2% 20 MG/ML VIAL INJ ONE (06:29)
[2025-02-06] MEDS ORDERED: MIDAZOLAM HCL 2 MG/2 ML VIAL ONE (06:35)
[2025-02-06] MEDS ORDERED: CLINDAMYCIN PHOSPHATE/D5W 900 MG/50 ML PIGGYBACK IV SCH ×2 (07:00→14:00)
[2025-02-06] MEDS ORDERED: TRANEXAMIC ACID IN NACL,ISO-OS 1,000 MG/100 ML PIGGYBACK IV SCH ×2 (07:00→12:01)
[2025-02-06] MEDS ORDERED: HYDROmorphone HCL 1 MG/ML SYR IV PRN (07:15)
[2025-02-06] MEDS ORDERED: IBLOOD GLUCOSE TEST STRIP 1 EA TEST VI PRN (07:15)
[2025-02-06] MEDS ORDERED: NALOXONE HCL 0.4 MG SYR IV PRN (07:15)
[2025-02-06] MEDS ORDERED: fentaNYL citrate 50 MCG/ML SDV IV PRN (07:15)
[2025-02-06] MEDS ORDERED: PROCHLORPERAZINE EDISYLATE 10 MG/2 ML VIAL IV PRN (07:15)
--- NOTE | 2025-02-06 07:20 | NUR ---
RECIEVED REPORT FROM DICK MACE. PT OFF UNIT FOR PROCEDURE, NO NEEDS AT THIS TIME.
--- NOTE | 2025-02-06 09:17 | NUR ---
02/06/25 0916 Joelle Hernández PATIENT IS AWAKE AND COMPLAINS OF JAW PAIN. JAW THRUST IS RELEASED. PATIENT IS EXCHANGING WELL ON HER OWN. OXYGEN SATURATION REMAINS 100% ON 6L VIA MASK. OXYGEN IS DISCONTINUED AT THIS TIME.
--- NOTE | 2025-02-06 09:53 | NUR ---
CHART UPDATES SENT TO [facility].
[2025-02-06] MEDS ORDERED: KETOROLAC TROMETHAMINE 30 MG/ML VIAL IV PRN (10:00)
--- NOTE | 2025-02-06 11:01 | NUR ---
PTS REPORTS IV IS HURTING, IV FLUSHES WELL BUT IV PUMP REPORTS OCCLUSION, REPORTED TO SERVICES HOST TO ASSES IV. PLAN IS TO HAVE A NEW ULTRASOUND IV PLACED.
--- NOTE | 2025-02-06 11:11 | NUR ---
HR DECLINED AND [facility] DOES NOT HAVE ANY BEDS TILL SUNDAY. CHART FAXED TO [facility]. PATIENT AND LUIS MIGUEL AGREEABLE TO POTENITALLY GOING TO [facility].
[2025-02-06] MEDS ORDERED: PANTOPRAZOLE SODIUM 40 MG TABEC ONE (13:25)
[2025-02-06] MEDS ORDERED: FENOFIBRATE,MICRONIZED 145 MG TAB ONE (13:25)
[2025-02-06] MEDS ORDERED: LOSARTAN POTASSIUM 25 MG TAB ONE (13:25)
[2025-02-06] MEDS ORDERED: LORATADINE 10 MG TAB ONE (13:25)
[2025-02-06] MEDS ORDERED: ESCITALOPRAM OXALATE 10 MG TAB ONE (13:25)
[2025-02-06] MEDS ORDERED: LEVOTHYROXINE SODIUM 75 MCG TAB ONE (13:25)
[2025-02-06] MEDS ORDERED: TOPIRAMATE 25 MG TAB ONE (13:26)
[2025-02-06] MEDS ORDERED: TRANEXAMIC ACID IN NACL,ISO-OS 100 ML IV ONE (14:41)
--- NOTE | 2025-02-06 15:00 | NUR ---
ATTEMPTED TO CALL [facility]. NO ANSWER.
[2025-02-06] MEDS ORDERED: SEVOFLURANE 250 ML BTL INH ONE (16:28)
--- NOTE | 2025-02-06 18:01 | NUR ---
Up in chair, eating, no c/o pain, IVF infusing. Dressing in place, legs elevated.
--- NOTE | 2025-02-06 19:05 | NUR ---
REPORT RECEIVED FORM JORDYN JENNINGS. pt RESTING IN THE BED. pt DENIES ANY NEEDS AT THIS TIME. BOARD UPDATED. CALL LIGHT WITHIN REACH.
[2025-02-06] MEDS ORDERED: SENNOSIDES 1 TAB PO SCH (21:00)
[2025-02-06] MEDS ORDERED: ASPIRIN 325 MG TAB PO SCH (21:00)
--- NOTE | 2025-02-06 21:10 | NUR ---
ASSESSMENT AND VITAL SIGNS DONE. SCHEDULED MEDS ADMINISTERED. pt REFUSED THE SCD'S ON HER LEGS. pt C/O 10/16 PAIN. PRN PAIN MEDS ADMINISTERED. BOOT ON LLE. ICE PACK REFRESHED. pt DENIES ANY OTHER NEEDS AT THIS TIME. CALL LIGHT WITHIN REACH. IV ASSESSED, WNL. WATER REFRESHED.
--- NOTE | 2025-02-06 22:10 | NUR ---
IV ABX INFUSING PER ORDER. pt DENIES ANY NEEDS AT THIS TIME. PURE WICK IN PLACE. CALL LIGHT WITHIN REACH.
--- NOTE | 2025-02-06 23:36 | NUR ---
pt RESTING IN THE BED WITH EYES CLOSED. RR EVEN AND UNLABORED. CALL LIGHT WITHIN REACH.
[2025-02-07] VITALS (9 sets, daily range): BP systolic 110–158; BP diastolic 47–78
--- NOTE | 2025-02-07 01:27 | NUR ---
IN RM TO DO VITAL SIGNS. pt RESTING IN THE BED. ICE PACK REFRESHED. BOOT STILL IN PLACE. pt REFUSED SCD'S. pt DENIES ANY OTHER NEEDS AT THIS TIME. CALL LIGHT WITH REACH.
--- NOTE | 2025-02-07 03:11 | NUR ---
pt RESTING IN THE BED WITH EYES CLOSED. RR EVEN AND UNLABORED. CALL LIGHT WITHIN REACH.
--- NOTE | 2025-02-07 05:35 | NUR ---
[employer]ER OBTAINED VITALS AND I&O. PT STATES NO NEEDS AT THIS TIME. CALL LIGHT WITHIN REACH.
--- NOTE | 2025-02-07 05:58 | NUR ---
IN RM TO ADMINISTER pt SCHEDULED MEDS AND IV ABX. IV ABX INFUSING PER ORDER. pt DENIES ANY NEEDS AT THIS TIME. CALL LIGHT WITHIN REACH. X2 ICE PACKS PLACED ON pt LLE. pt CAN NOT FEEL THIS RN TOUCHING HER TOES BUT HAS SENSATION ABOVE THE BOOT. pt TOES ARE WARM TO THE TOUCH.
--- NOTE | 2025-02-07 07:25 | NUR ---
RECEIVED REPORT FROM DICK MACE. PT LAYING IN BED WITH EYES CLOSED, UNLABORED BREATHING. NO NEEDS AT THIS TIME, CALL LIGHT WITHIN REACH.
--- NOTE | 2025-02-07 11:20 | NUR ---
ASSISTED PATIENT IN REPOSITIONING AND LIGHTING IN THE ROOM, NO OTHER NEEDS AT THIS TIME, CALL LIGHT WITHIN REACH.
--- NOTE | 2025-02-07 12:31 | NUR ---
PT REPORTS BEING LACTOSE INTOLERANT, PT EDUCATED SO[place]ILK DOES NOT HAVE LACTOSE. TRAY REMOVED FROM [employer], NO OTHER NEEDS AT THIS TIME, CALL LIGHT IN REACH.
--- NOTE | 2025-02-07 13:55 | NUR ---
PT SITTING UP IN CHAIR REPORTS NO NEEDS AT THIS TIME, CALL LIGHT WITHIN REACH.
--- NOTE | 2025-02-07 14:30 | NUR ---
PT UP TO CHAIR WITH EYES CLOSED, UNLABORED BRATHING. NO NEEDS AT THIS TIME, CALL LIGHT WITHIN REACH.
--- NOTE | 2025-02-07 15:27 | NUR ---
PT CALLED TO REPORT PURWICK IS HURTING, ASSESSED, REPOSITIONED, PT REPORTS NO FURTHER PAIN. CALL LIGHT WITHIN REACH.
--- NOTE | 2025-02-07 18:09 | NUR ---
PT REPORTS FEELING BLOATED AND GASSY, EDUCATED ON BEING UP TO CHAIR WILL HELP PT MOVE BOWELS. PT VERBALIZES UNDERSTANDING.
[2025-02-07] MEDS ORDERED: HYDROCODONE/ACETA 5/325 TAB PO PRN (18:30)
--- NOTE | 2025-02-07 19:47 | NUR ---
REPORT RECEIVED FROM DAY SHIFT RN. PT LYING IN BED ALERT AND ORIENTED. DENIES NEEDS. WHITE BOARD UPDATED. CALL LIGHT IN REACH.
--- NOTE | 2025-02-07 21:34 | NUR ---
FISH SMOKER TO ROOM FOR SCHEDULED MEDICATION ADMINISTRATION. PT WATCHING TV. DENIES FURTHER NEEDS. CALL LIGHT IN REACH.
--- NOTE | 2025-02-07 22:32 | NUR ---
EVENING ASSESSMENT COMPLETE. SCHEDULED MEDS ADMIN PER EMAR. PT REPORTS LLE PAIN TOLERABLE AT THIS TIME. LLE ELEVATED ON PILLOW. BOOT IN PLACE. CMS INTACT. SCD TO RLE. SEIZURE PADS IN PLACE. PT DENIES QUESTIONS OR CONCERNS. CALL LIGHT IN REACH.
--- NOTE | 2025-02-07 23:47 | NUR ---
PT AWAKE IN BED. ASSISTED TO REPOSITION FOR COMFORT. NO FURTHER NEEDS. BED ALARM FOR SAFETY. CALL LIGHT IN REACH.
[2025-02-08] VITALS (10 sets, daily range): BP systolic 128–150; BP diastolic 64–77
--- NOTE | 2025-02-08 01:00 | NUR ---
PT REPORTS LLE PAIN. PRN FOR PAIN ADMIN PER EMAR. NO FURTHER NEEDS.
--- NOTE | 2025-02-08 02:21 | NUR ---
PT RESTING IN BED WITH EYES CLOSED. RESPIRATIONS EVEN. SPOT CHECK SpO2 93% ON RA. CALL LIGHT IN REACH. BED ALARM FOR SAFETY.
--- NOTE | 2025-02-08 04:17 | NUR ---
PT RESTING IN BED WITH EYES CLOSED. RESPIRATIONS EVEN. CALL LIGHT IN REACH.
--- NOTE | 2025-02-08 04:29 | NUR ---
PT UTILIZES CALL LIGHT, REPORTS 7-8/10 PAIN TO LLE. PRN TITRATED TO MAX DOSE. BRACE OPENED AND FRESH ICE PACK APPLIED. PT DENIES FURTHER NEEDS AT THIS TIME. CALL LIGHT IN REACH.
--- NOTE | 2025-02-08 05:53 | NUR ---
VS AND I&O OBTAINED. PUREWICK CHANGED AFTER LEATHA CARE. LLE ELEVATED ON PILLOW WITH ICE PACK. SCHEDULED MEDS ADMIN PER EMAR. NO FURTHER NEEDS. CALL LIGHT IN REACH.
--- NOTE | 2025-02-08 07:12 | NUR ---
RECIEVED REPORT FROM DICK ÁLVAREZ. PT RESTING IN BED WITH EYES CLOSED. CALL LIGHT WITHIN REACH.
--- NOTE | 2025-02-08 09:21 | NUR ---
PT RESTING IN BED. GOT HER A WARM WASH CLOTH FOR HER FACE AND HANDS. PT HAS FRESH ICE WATER BY HER BED THAT I HAD GOTTEN EARLIER. CALL LIGHT IS ON THE BED WITH THE PT. PT REPORTS NEEDING NOTHING MORE AT THIS TIME.
--- NOTE | 2025-02-08 13:38 | NUR ---
PT RESTING IN BED FOLLOWING LUNCH. SEIZURE PADS ARE ON THE BED, AND THE BED IS LOW WITH SIDE RAILS UP. LIGHTS WERE OUT WHEN I WALKED IN THE ROOM. THIS BLACK LEATHER BUFFER REMOVED TRASH AND EMPTIED THE URINE FROM THE PUREWICK CONTAINER. CALL LIGHT WITH PT. PT HAS WATER NEAR BED FROM LUNCH AND REPORTS NEEDING NOTHING MORE AT THIS TIME.
--- NOTE | 2025-02-08 17:50 | NUR ---
THIS RN TO BEDSIDE. PT STATES SHE FEELS LIKE SHE IS EXPERIENCING MORE TREMORS THIS EVENING AND REQUESTS ASSISTANCE WITH EATING DINNER, ASSISTANCE PROVIDED, PT EATS 100% OF DINNER TRAY, STATES NO FURTHER NEEDS AT THIS TIME. BOOT ON LLE REPOSITIONED TO CORRECT PLACEMENT PER ORDER. CALL LIGHT WITHIN REACH.
--- NOTE | 2025-02-08 17:56 | NUR ---
Verbal order obtained from Soha Sampson PA-C for 600mg motrin PO TID PRN Pain
[2025-02-08] MEDS ORDERED: IBUPROFEN 600 MG TAB PO PRN (18:00)
--- NOTE | 2025-02-08 18:46 | NUR ---
GOT PT WARM WASH CLOTH FOR FACE AND HANDS. BRUSHED PT'S HAIR AND CHANGED HER GOWN. PT THOUGHT SHE NEEDED TO HAVE A BOWEL MOVEMENT SO I PLACED HER ON A BEDPAN. PT URINATED AND HAD A SMEAR OF A BM. GOT PT FRESH ICE WATER AND TOOK OUT ROOM TRASH. PT WANTED ME TO REPORT PAIN TO THE NURSE, THIS FRAME REPAIRER TOLD PT'S RN SHE WANTED PAIN MEDICATION. PT HAS ICE PACK ON HER ANKLE. CALL LIGHT WITHIN REACH, PT WATCHING TV.
--- NOTE | 2025-02-08 19:04 | NUR ---
PT ASKED IF SHE COULD SIT ON A BEDPAN TO HAVE A BM. I PLACED HER ON A BEDPAN. PT URINATED AND HAD A SMEAR OF BM. PLACED A NEW PUREWICK AND A NEW, CLEAN BRIEF. PT REPORTS FEELING BETTER.
--- NOTE | 2025-02-08 19:33 | NUR ---
REPORT RECEIVED FROM DAY SHIFT RN. PT LYING IN BED ALERT AND ORIENTED. REPORTS LLE PAIN. WILL MEDICATE PER EMAR. NO FURTHER NEEDS. WHITE BOARD UPDATED. CALL LIGHT IN REACH.
--- NOTE | 2025-02-08 20:44 | NUR ---
Patient in bed watching tv, no acute distress. Scheduled hs medications admin per order. Patient reports 5/10 left knee pain, patient recently meidcated with pain medication. Patient denes further needs, personal supplies and call light within reach.
--- NOTE | 2025-02-08 21:11 | NUR ---
EVENING ASSESSMENT COMPLETE. PT REPORTS LEFT KNEE PAIN. LEFT FOOT REPOSITIONED IN BOOT. ELEVATED WITH PILLOW. FRESH ICE PACK IN PLACE. PT REPORTS RELIEF. CARINA WRAP TO LLE CDI. CMS INTACT. VS AND I&O OBTAINED. SEIZURE PADS IN PLACE. PT DENIES FURTHER NEEDS. BED ALARM FOR SAFETY. CALL LIGHT IN REACH.
--- NOTE | 2025-02-08 22:09 | NUR ---
ADMIN IBUPROFEN 600MG PO FOR REPORTS OF 8/10 LEFT KNEE PAIN.
--- NOTE | 2025-02-09 00:18 | NUR ---
CALL LIGHT ANSWERED. PT REPORTS PAIN IN LEFT GROIN WHERE ATTENDS ARE IN PLACE. NEW ATTENDS AND PUREWICK PLACED AFTER LEATHA CARE. PT REPORTS RELIEF. NO FURTHER NEEDS.
--- NOTE | 2025-02-09 02:46 | NUR ---
PT RESTING IN BED WITH EYES CLOSED. RESPIRATIONS EVEN. CALL LIGHT IN REACH.
--- NOTE | 2025-02-09 04:09 | NUR ---
PT RESTING IN BED WITH EYES CLOSED. RESPIRATIONS EVEN. CALL LIGHT IN REACH.
[2025-02-09 04:50] VITALS: BP 142/68
[2025-02-09 04:55] VITALS: BP 142/68
--- NOTE | 2025-02-09 05:04 | NUR ---
CALL LIGHT ANSWERED. PT REPORTS LEFT ANKLE PAIN 12/17. PRN FOR PAIN ADMIN PER EMAR. SCHEDULED MEDS ADMIN. LEFT FOOT REPOSITIONED IN BOOT. ICE PACK PROVIDED. VS AND I&O OBTAINED. NO FURTHER NEEDS. CALL LIGHT IN REACH.
--- NOTE | 2025-02-09 07:23 | NUR ---
UPDATED NOTES FAXED TO [facility] AND [facility]
--- NOTE | 2025-02-09 07:40 | NUR ---
THIS RN RECEIVED REPORT FROM JAME ZARATE. PATIENT RESTING IN BED AT THIS TIME, EYES CLOSED AND DID AWAKEN WHEN ENTERED ROOM, RESP EVEN/UNLABORED. CALL LIGHT WITHIN REACH, BED ALARM IN PLACE FOR SAFETY. ALL PT CARE NEEDS MET AND PATIENT ALLOWED TO REST AT THIS TIME.
--- NOTE | 2025-02-09 08:06 | NUR ---
SPOKE WITH SHELBIE AT [facility]. STATES THEY WILL REVIEW UPDATES AND MAYBE BE ABLE TO ACCEPT PATIENT TODAY OR TOMORROW, IF THEY HAVE DISCHARGES.
--- NOTE | 2025-02-09 08:17 | NUR ---
SLEEPING, WILL UPDATE HER ON PENDING PLACEMENT WHEN SHE WAKES UP
--- NOTE | 2025-02-09 08:44 | OR ---
[facility] [address] [place], [place] [address] Signed DATE OF OPERATION: 02/06/2025 SURGEON: Keya Rodriguez MD PREOPERATIVE DIAGNOSIS: Pilon fracture, left distal tibia with associated comminuted fibular fracture. POSTOPERATIVE DIAGNOSIS: Pilon fracture, left distal tibia with associated comminuted fibular fracture. PROCEDURES PERFORMED: 1. Open reduction and internal fixation of left pilon fracture. 2. Open reduction and internal fixation of comminuted left distal fibula fracture. PRESS MACHINE FEEDER: Soha Muro PA-C. Soha was present and critical for all portions of procedure. ANESTHESIA: MAC with blocks. BLOOD LOSS: Minimal. TOURNIQUET TIME: 85 minutes. IMPLANTS: Jeremi eight hole 3.5 distal tibia medial plate and anatomic distal fibular plate. BRIEF HISTORY: Kelin is a 59-year-old female who suffered a ground level fall fracturing her tibia with a comminuted displaced pilon fracture of the left distal tibia and fibula. Risks and benefits of operative treatment were discussed with her. Surgery was slightly delayed in order to get the proper implants. DESCRIPTION OF PROCEDURE: Once consent was obtained, she was taken to the operating room. After adequate anesthesia she was placed on operating room table. All downside pressure points were well padded. The left leg was placed in a well-padded proximal thigh tourniquet, Electronically Signed By: KEYA RODRIGUEZ MD 02/09/25 0844 PATIENT NAME: KELIN JOVEL [facility] OPERATIVE REPORT DATE OF : 65 REPORT #: [id number] PHYSICIAN: KEYA RODRIGUEZ MD PCP: NO PRIMARY CARE PHYSICIAN REPORT IS CONFIDENTIAL AND NOT TO BE RELEASED WITHOUT AUTHORIZATION [facility] [address] [place], [place] [address] Signed prepped and draped in a standard sterile fashion exsanguinated using Esmarch bandage. Tourniquet inflated to 250 mmHg. Standard anteromedial approach to the tibia was undertaken, carried through skin and subcutaneous tissue. The saphenous vein was isolated and protected. The fracture was identified, distracted and cleaned of soft tissue. It was then clamped with two cross clamps in coronal and sagittal planes. This was checked using image intensifier and found to be well reduced. The medial, distal tibia plate was then positioned and held with a plate holding clamp. The image intensifier was again brought in, found to be good. The plate was then secured with two screws distally and two screws proximally. Again, it was checked on the image intensifier and found to be good. We did put one lag screw to the fragment posteriorly from the anterior margin. The remaining screw holes were drilled and appropriate length screws were placed. Some locking screws distally were used. A final medial radiograph showed good reduction and plate placement of screw length. The attention was then turned to the lateral side, which was approached through a standard lateral incision, carried through skin and subcutaneous tissue. The fracture was distracted. There were multiple fragments. Care was taken to protect the soft tissue attachments of these fragments. The fracture was realigned and mildly cross clamped. The distal fibular locking plate was then placed over the fibula and held with a proximal screw. Alignment was checked and three locking screws were placed distally, four screws placed proximally. Final radiographs showed good alignment of the joint, good alignment of the fractures and appropriate screw lengths. Both wounds were copiously irrigated with antibiotic solution, closed in a deep fashion with 2-0 Monocryl and the skin was closed with kendy. All wounds were dressed with Allevyn, ABDs and CARINA wrap. She was placed in a fracture boot, taken to the recovery room in satisfactory condition. All sponge, needle, and instrument counts were correct. Keya Rodriguez MD BA/MODL /[id number] Copies: ~ Electronically Signed By: KEYA RODRIGUEZ MD 02/09/25 0844 PATIENT NAME: KELIN JOVEL OPERATIVE REPORT DATE OF : 65 REPORT #: [id number] PHYSICIAN: KEYA RODRIGUEZ MD PCP: NO PRIMARY CARE PHYSICIAN REPORT IS CONFIDENTIAL AND NOT TO BE RELEASED WITHOUT AUTHORIZATION
[2025-02-09 09:06] VITALS: BP 120/57
--- NOTE | 2025-02-09 09:21 | NUR ---
PT RESTING IN BED, BOOT ADJUSTED THIS MORNING TO ASSURE GOOD FIT, ICE PACK IN PLACE, PT STATES PAIN 7/10 WHICH IS TOLERABLE FOR HER, DOES NOT APPEAR TO BE IN SIGNIFICANT PAIN. MEDS GIVEN FEW AT A TIMES, PT DENIES WANTING HER BREAKFAST AT THIS TIME, LEFT IN ROOM PATIENT WANTS TO SLEEP ALITTLE LONGER. SEIZURE PADS IN PLACE, CALL LIGHT WITHIN REACH. LIGHTS TURNED DOWN AND PT WILL CALL WHEN SHE WAKES BACK UP FOR BREAKFAST. ASSESSMENT COMPLETED AT THIS TIME.
--- NOTE | 2025-02-09 10:14 | NUR ---
CALLED LUIS MIGUEL AND UPDATED HER. PATIENT UPDATED ON DC TODAY TO [facility], SHE IS VERY HAPPY ABOUT THIS. ALSO CALLED [facility] LINE FOR HOSPITAL EXEMPTION DC TO SNF. NO ANSWER, LEFT MESSAGE.
--- NOTE | 2025-02-09 10:31 | NUR ---
WHEELCHAIR VAN SCHEDULED FOR 5 THIS AM TO TRANSPORT TO [facility]
--- NOTE | 2025-02-09 10:53 | NUR ---
PT RESTING IN BED, JUST FINISHED WITH BREAKFAST. PRN PAIN MEDS GIVEN FOR 8/10 PAIN THE (L) ANKLE, SEE JUN. ICE PACK REMAINS IN PLACE TO (L) ANKLE. PT BELONGINGS ARE PACKED UP, PT INFORMED THEY WILL BE BRINGING WC AT 1130, FOR HER TO GO TO [facility]. PT VERBALIZES UNDERSTANDING. PT HOME MEDS IN BUBBLE PACK REMOVED FROM LOCK BOX AND PLACED IN BINDER IN GREEN BAG TO GO TO [facility] WELL. ALL PT CARE NEEDS MET AT THIS TIME, WILL CONTINUE TO MONITOR.
--- NOTE | 2025-02-09 11:10 | NUR ---
STEFANIA, BRYANT, DC SUMMARY FAXED TO [facility].
[2025-02-10] MEDS ORDERED: ASPIRIN325 MG PO (09:38)
[2025-02-10] MEDS ORDERED: BION TEARS OU (09:40)
[2025-02-10] MEDS ORDERED: HYDROCODON-ACE1 EA10 PO (09:48)
== END 2025-02-09 11:50 | DRG 494 ==
LOC: ED 23:06 → MS 02-02 03:51
PROVIDERS: Internal Medicine; Specialist; ADMIT Student in an Organized Health Care Education/Training Program; ATTEND Student in an Organized Health Care Education/Training Program
PROC: 0QSK04Z Reposition Left Fibula with Internal Fixation Device, Open Approach (ICD-10-PCS; 2025-02-06)
PROC: 0QSH04Z Reposition Left Tibia with Internal Fixation Device, Open Approach (ICD-10-PCS; principal; 2025-02-06 07:00)
DX: S82.252A Displaced comminuted fracture of shaft of left tibia, initial encounter for closed fracture (principal); S82.452A Displaced comminuted fracture of shaft of left fibula, initial encounter for closed fracture; F03.90 Unspecified dementia, unspecified severity, without behavioral disturbance, psychotic disturbance, mood disturbance, and anxiety; G40.909 Epilepsy, unspecified, not intractable, without status epilepticus; K21.9 Gastro-esophageal reflux disease without esophagitis; G47.30 Sleep apnea, unspecified; I10 Essential (primary) hypertension; F41.9 Anxiety disorder, unspecified; Z87.820 Personal history of traumatic brain injury; Z98.51 Tubal ligation status; Z79.899 Other long term (current) drug therapy; Z88.0 Allergy status to penicillin; Z88.1 Allergy status to other antibiotic agents; Z88.8 Allergy status to other drugs, medicaments and biological substances; W18.30XA Fall on same level, unspecified, initial encounter; Y92.002 Bathroom of unspecified non-institutional (private) residence as the place of occurrence of the external cause
CPT/HCPCS: 01480; 27752; 36415; 51701; 51798; 64445; 64447; 70450; 71045; 73590; 73610; 73700; 80048; 80053; 80185; 81003; 82550; 83735; 84484; 85025; 93005; 93010; 94762; 94799; 97110; 97162; 97164; 97166; 97530; 99285-25; A9270; J1100; J1171; J2250; J2405; J2704; J2795; J3490; J7121

== ENCOUNTER 2025-02-10 09:19 | Emergency (ER) | payer MEDICARE, OTHER ==
[~2025-02-10] VITALS: Ht 162.6 cm; Wt 79.0 kg
[~2025-02-10 09:19] MED LIST changes: +ADVIL200 MG PO; +LACOSAMIDE100 MG PO; +LACOSAMIDE200 MG PO; +PERCOCET 5-3251 EACH PO; +TOPAMAX50 MG PO
--- OUTSIDE RECORDS SUMMARY | 2025-02-10 09:21 | XMS ---
PreManage Notification: RERE JOVEL Security Furniture Mover Helper Events No recent Security Events currently on file CRITERIA MET - [facility] - 2 Visits in 30 Days CARE PROVIDERS -, [facility] Dentist: Coat Padder Current [facility] PHONE: [phone] CAROLINE NICOLE Nurse Practitioner: Family Current PHONE: [phone] [facility] \F\ <UNAVAIL> PHONE: Unknown [facility]: [facility] FAMILY PHONE: [phone] TRACIE RAYMOND Physician Transformation Manager Georges FARIBA PHONE: [phone] DEANNA DOWNEY Psychiatry \T\ Neurology: Neurology Current PHONE: [phone] KEVIN CAUSEY [facility] Current PHONE: [phone] HITESH FREITAS Nurse Practitioner: Adult Health [facility] PHONE: [phone] [facility] Current \T\ SERVICES - MIGUEL \F\ <UNAVAIL> PHONE: [phone] [facility] OFFICE OF Case Management Current AGING \T\ DETENTION CARE PHONE: [phone] Shaq has no Care Guidelines for this patient. [facility] VISIT COUNT (12 MO.) 3 [facility] TOTAL 3 NOTE: Visits indicate total known visits. ED/UCC VISIT TRACKING (12 MO.) 02/10/2025 09:19 [facility] [place] TYPE: Emergency COMPLAINT: - SEIZURE 02/01/2025 23:06 [facility] [place] TYPE: Emergency COMPLAINT: - FALL 08/06/2024 12:21 [facility] [place] TYPE: Emergency COMPLAINT: - CHEST PAIN DIAGNOSES: - Allergy status to other antibiotic agents - Allergy status to penicillin - Allergy to other foods - Hormone replacement therapy - intermodal dispatcher (current) use of antibiotics - Other chest pain - Other fpc (current) drug therapy - Sleep apnea, unspecified INPATIENT VISIT TRACKING (12 MO.) 02/02/2025 03:51 [facility] [place] TYPE: Medical Surgical COMPLAINT: - COMMINUTED ANKLE FRACTURE [email or web address]
[2025-02-10] MEDS ORDERED: ASPIRIN325 MG PO (09:38)
[2025-02-10] MEDS ORDERED: BION TEARS OU (09:40)
[2025-02-10] MEDS ORDERED: HYDROCODON-ACE1 EA10 PO (09:48)
[2025-02-10] MEDS ORDERED: LORazepam 1 MG TAB PO ONE (10:00)
[2025-02-10 10:02] LABS: BASOPHILS 0.7 % (0.1-1.2); EOSINOPHILS 2.0 % (0.7-5.8); LYMPHOCYTES 26.7 % (19.3-51.7); MCH 29.8 PG (25.6-32.2); MCHC 32.3 g/dL (32.2-35.5); MCV 92.4 fL (79.4-94.8); MONOCYTES 10.3 % (4.7-12.5); NEUTROPHILS 59.4 % (34.0-71.1); RBC 3.82 M/uL (3.93-5.22)
[2025-02-10 10:06] LABS: GLOMERULAR FILTRATION RATE,EST 68.0 mL/min (>60); UREA NITROGEN 20.0 mg/dL (7-18)
[2025-02-10 12:32] VITALS: BP 114/61
== END 2025-02-10 13:20 | disposition home or self-care (01) ==
LOC: ED 09:19
PROVIDERS: Emergency Medicine
DX: G25.3 Myoclonus (principal); G47.30 Sleep apnea, unspecified; K21.9 Gastro-esophageal reflux disease without esophagitis; Z79.899 Other long term (current) drug therapy; Z79.82 Long term (current) use of aspirin; Z88.0 Allergy status to penicillin; Z88.1 Allergy status to other antibiotic agents; Z88.5 Allergy status to narcotic agent; Z91.040 Latex allergy status; Z91.018 Allergy to other foods; Z88.8 Allergy status to other drugs, medicaments and biological substances
CPT/HCPCS: 36415; 80048; 85025; 96374; 99284-25; A9270-GY; J2405